=== PATIENT | male | born 1995 | race African-American/Black ===

== ENCOUNTER 2017-09-20 19:23 | Emergency (ER) | payer MEDICAID ==
[~2017-09-20] VITALS: Ht 190.5 cm; Wt 78.0 kg
[2017-09-20 22:00] VITALS: BP 124/71
== END 2017-09-20 22:01 | disposition home or self-care (01) ==
LOC: ER 20:48
DX: R05 Cough (principal); R51 Headache; R50.9 Fever, unspecified; J45.909 Unspecified asthma, uncomplicated
CPT/HCPCS: 99283